=== PATIENT | male | born 1970 | race Caucasian/White ===

== ENCOUNTER → 2016-11-29 | Outpatient (CLI) | payer OTHER ==
[~2016-11-29] MED LIST: CELEBREX400 MG PO; CPAP INH; LEVOTHROID (S150 MCG PO; LISINOPRIL-HCT1 EACH PO
== END | disposition disaster alternative care site (69) ==
LOC: GRAD 07:31
DX: M54.2 Cervicalgia (principal)

== ENCOUNTER → 2016-12-29 | Outpatient (CLI) | payer OTHER | END | disposition disaster alternative care site (69) | LOC: GOPD 12-06 → EDSTATUS → GOPD → GRAD 08:54 | DX: M54.2 Cervicalgia (principal); M47.892 Other spondylosis, cervical region; M48.02 Spinal stenosis, cervical region | CPT/HCPCS: J2001; J7030 ==